=== PATIENT | female | born 1930 | race Caucasian/White ===

== ENCOUNTER 2018-06-26 11:21 | Observation (INO) | payer MEDICARE ==
[2018-06-25 14:00] VITALS: BMI 26.5
[2018-06-26] MEDS ORDERED: CEFAZOLIN 2 GM/50 ML BAG ONE (12:12)
[2018-06-26 12:23] LABS: #Eosinphils 0.1 thou/uL (0.0-0.7); #Lymphocytes 2.4 thou/uL (1.20-3.40); #Monocytes 0.6 thou/uL (0.11-0.59); #Neutrophils 3.8 thou/uL (1.40-6.50); %Basophils 0.2 % (0.0-1.0); %Eosinophils 1.7 % (0.0-10.0); %Lymphocytes 34.6 % (21.0-51.0); %Monocytes 8.4 % (0.0-10.0); %Neutrophils 55.2 % (42.0-75.0); Mean Corpuscular HGB CONC 32.5 g/dL (32.0-36.0); Mean Corpuscular Hemoglobin 29.4 pg (27.0-31.0); Mean Corpuscular Volume 90.4 fL (78.0-98.0); Mean Platelet Volume 7.2 fL (7.4-10.4); Platelet Count 192 thou/uL (130-400); RBC Distribution Width 11.8 % (11.5-14.5); Red Blood Cell (RBC) Count 4.76 mill/uL (4.20-5.40); White Blood Cell (WBC) Count 6.8 thou/uL (4.8-10.8)
[2018-06-26 12:42] LABS: Anion Gap 9 mmol/L (10-20); BUN (Urea Nitrogen) 11 mg/dL (9.8-20.1); Calc. Creatinine Clearance 58 mL/min (70-130); Calcium 9.4 mg/dL (7.8-10.44); Carbon Dioxide 29 mmol/L (23-31); Chloride 109 mmol/L (98-107); Estimated GFR-MDRD 74; Glucose 91 mg/dL (83-110); Potassium 3.8 mmol/L (3.5-5.1); Sodium 143 mmol/L (136-145)
--- NOTE | 2018-06-26 12:50 | RAD ---
CHEST ONE VIEW: History: 87-year-old female for pre-operative evaluation. Comparison: 01-02-15 FINDINGS: Post underlying sternotomy and coronary artery bypass changes. Old granulomatous disease. No confluen t pneumonia, overt edema or pleural effusion. IMPRESSION: Post underlying sternotomy. No acute intrathoracic disease. Atherosclerosis of the aorta. POS: [facility]
[2018-06-26] MEDS ORDERED: Ropivacaine 0.5% HCl/PF (150 MG/30 ML VIAL) ONE (14:18)
[2018-06-26] MEDS ORDERED: Ropivacaine 0.2% HCl/PF (40 MG/20 ML VIAL) ONE (14:18)
[2018-06-26] MEDS ORDERED: Ondansetron PF 4 MG/2 ML Vial ONE (14:24)
[2018-06-26] MEDS ORDERED: Dexamethasone 20 MG/5 ML VIAL ONE (14:24)
[2018-06-26] MEDS ORDERED: Lidocaine 1% PF 5 ML VIAL ONE (14:24)
[2018-06-26] MEDS ORDERED: ePHEDrine/0.9% NaCl/PF SYRINGE 50 mg/10 ml ONE (14:24)
[2018-06-26] MEDS ORDERED: PHENYLEPHRINE-NS 100 MCG/ML 10 ML SYRINGE ONE (14:24)
[2018-06-26] MEDS ORDERED: PROPOFOL 200 MG/20 ML VIAL ONE (14:24)
[2018-06-26] MEDS ORDERED: Midazolam HCl 2 mg/2 ml Vial ONE (14:45)
[2018-06-26] MEDS ORDERED: Fentanyl 100 MCG/2 ML VIAL ONE ×2 (14:45→15:55)
[2018-06-26] MEDS ORDERED: traMADol HCl 50 MG TAB PO PRN ×2 (15:15)
[2018-06-26] MEDS ORDERED: Promethazine HCl 25 MG/ML VIAL IM PRN ×2 (15:15→18:25)
[2018-06-26] MEDS ORDERED: HYDROcodone/Acetaminophen 10/325 mg Tablet PO PRN ×2 (15:15)
[2018-06-26] MEDS ORDERED: Fentanyl 100 MCG/2 ML VIAL IV PRN (15:15)
[2018-06-26] MEDS ORDERED: Ondansetron PF 4 MG/2 ML Vial IVP PRN (15:15)
[2018-06-26] MEDS ORDERED: Ropivacaine 0.2% 550 ML 550 ML NERVE BLCK SCH (15:15)
[2018-06-26] MEDS ORDERED: Zolpidem Tartrate 5 MG TAB PO PRN (15:15)
[2018-06-26] MEDS ORDERED: Sodium Chloride 0.9% 10 ML ONE (15:51)
[2018-06-26] MEDS ORDERED: Bupivacaine PF 0.5% 30 ML VIAL ONE (15:51)
[2018-06-26] MEDS ORDERED: Bacitracin Zinc Ointment 30 gm TUBE ONE (15:51)
[2018-06-26] MEDS ORDERED: Ondansetron HCl/PF 4 MG/2 ML Vial IVP PRN (18:25)
[2018-06-26] MEDS ORDERED: Promethazine HCl 25 MG/ML VIAL SLOW IVP PRN (18:25)
[2018-06-26] MEDS ORDERED: Milk Of Magnesia 30 ML UDCUP PO PRN (18:29)
[2018-06-26] MEDS ORDERED: Ondansetron PF 4 MG/2 ML Vial IV PRN (18:29)
[2018-06-26] MEDS ORDERED: HYDROcodone/Acetaminophen 5/325 mg Tablet PO PRN (18:29)
[2018-06-26] MEDS ORDERED: Acetaminophen/Codeine 30-300mg Tablet PO PRN (18:29)
[2018-06-26] MEDS ORDERED: TETANUS AND DIPHTHERIA TOX/PF 0.5 ML DISP.SYRIN IM SCH (18:30)
--- NOTE | 2018-06-26 19:45 | RAD ---
RIGHT HAND: 06/26/18 Total of four fluoroscopic views in OR are presented during internal fixation procedure. INDICATIONS: Open reduction internal fixation right hand with intraoperative imaging. FINDINGS/IMPRESSION: These films demonstrate internal fixation of trapezium with metallic pin. POS: [facility]
[2018-06-26] MEDS ORDERED: Vancomycin HCl 1 GM in Premix Bag 1 BAG IVPB SCH (20:00)
[2018-06-26] MEDS: Aspirin 81 mg Enteric Coated Tablet PO SCH (20:46)
[2018-06-27] MEDS: Aspirin 81 mg Enteric Coated Tablet PO SCH (08:13)
[2018-06-27 18:01] VITALS: BP 145/71; TEMP 98.7
--- NOTE | 2018-07-01 22:00 | EKG ---
Test Reason : PREOP Blood Pressure : / mmHG Vent. Rate : 061 BPM Atrial Rate : 061 BPM P-R Int : 180 ms QRS Dur : 088 ms QT Int : 440 ms P-R-T Axes : 035 000 048 degrees QTc Int : 442 ms Normal sinus rhythm Inferior infarct , age undetermined T wave abnormality, consider anterior ischemia Abnormal ECG Confirmed by EDWAR SUAREZ (2) on 07/01/2018 9:59:30 PM Referred By: ANETTE Confirmed By:EDWAR SUAREZ
--- NOTE | 2018-07-02 13:13 | OP ---
DATE OF PROCEDURE: 06/26/2018 PREOPERATIVE DIAGNOSIS: Right thumb carpometacarpal osteoarthritis. POSTOPERATIVE DIAGNOSES: Right thumb carpometacarpal osteoarthritis with greater than 80% carpometac arpal joint osteoarthritis, chondral loss, completed osteophyte formation both sides of the joint wit h subluxation over 50%. There was no metacarpophalangeal joint hyperextension. PROCEDURE PERFORMED: 1. Right ____ . 2. Right thumb carpometacarpal joint arthroplasty interpositional. 3. Flexor carpi radialis transfer to the base of the thumb for ligament replacement interposition. 4. C-arm supervision. SPECIMEN REMOVED: None. TOURNIQUET TIME: 54 minutes. ESTIMATED BLOOD LOSS: 10 mL. COMPLICATIONS: None. ____. She has ____ thumb metacarpal to the base of the index metacarpal at appropriate height for he aling. DESCRIPTION OF PROCEDURE: After successful general LMA technique, elevated the limb, prepped and evaristo ped. We then injected the outline incision for the tendon harvest x2 and the CMC LRTI procedure x1 w ith a total of 10 mL 0.5% Marcaine. The patient already had a block given to augment the general. We then exsanguinated the limb, inflated the tourniquet to 250 mmHg pressure and then began with the curvilinear incision carried through skin, subcutaneous tissue, protecting all superficial radial ner ve branches and then we dissected the fascia of the thenar muscle off the metacarpal and the abductor , displacing them so we could visualize the abductor insertion. We then teased the abductor first an d protected all the nerve branches from the capsule, opened the capsule to visualize the joint and re tracted the capsule throughout the entire case using heavy 2-0 undyed Vicryl. Here, we began osteoph yte incisions, and went proximal into the wound to the level where the flexor carpi radialis was seen , found it and freed it up completely to the level of the second metacarpal. We then began a sharp d issection to remove the trapezium after we placed a 62 threaded K-wire inside it to confirm on radiog raphs, it was exactly the trapezium we were removing. Once this was confirmed, we finish the excisio n of the trapezius and the trapeziectomy was completed. Then had with the tourniquet up still, trapeziectomy completed. In the posterior capsule we then jennifer barbie a heavy 3-0 Prolene [id number] as far ulnar as in line with the interspace treated for a sec ond metacarpal bases. At this point, we then dissected slightly laterally, identified osteophytes on the base of the thumb metacarpal and removed them. We also identified the extensor, protected it, v isualized the radial nerve branch protected it and then rotated the thumb parallel to the table, held by the lpn medical assistant, and then in the plane of the thumb nail drilled a 2.5 drill, 1.5 cm distal to the base of the thumb metacarpal and then had exited just at the chondral metaphysis junction. It was ex cellent in the frontal sagittal plane and had solid wall all around it, so we then overdrilled it wit h a 3.5 Synthes drill bit, to use curettes to slightly enlarge the tunnel wall and inside diameter, i rrigated it and found it was large enough for any tendon. We then turned attention to the flexor carpi radialis tendon where we made two incisions, each 1 appr oximately 8 cm from each other and the first one 8 centimeter from the volar wrist flexion crease, id entified flexor carpi radialis tendon then harvested it completely. We took all muscle from it befor e we pulled it into the wrist. Here, we dissected it free of any frayed area, passed it through the drill hole from the ulnar side to the radial side. Once it was here under gentle tension, we then ob tained position on C-arm that we wanted the base of the thumb metacarpal to be which will be 1 mm ove r reduced and it had an excellent abduction and clinical appearance and then drilled this with a K-wi re to hold the first metacarpal head at length for 3-4 weeks relative to the 2nd. At this point, we began a series of 4-0 Prolene 2 times suturing it to the tendon and the remnants of the metacarpal ba se of the thumb, passed it deep to the abductor and twice sutured here with the same 4.0 [id number] ght pattern, placed 2 sutures in the fascia of the base of the thumb metacarpal and then sutured it w ith the same 4-0 Prolene to itself under appropriate tension. Then, we cut the needles from the 3-0 Prolene and deep in the posterior capsule, placed a Luis needle, 1 on each end, and did an anchovy t ype weave and then tied this deep in the capsule to help fill the gap created by trapeziectomy. This was secured, we then deflated the tourniquet, obtained hemostasis, closed the capsule with 2-0 Vicry l, repaired the fascia of the thenar muscle with 3-0 Monocryl, used 4-0 Monocryl subcutaneous closure with hemostasis excellent and then 4-0 nylon for the skin. This was true for both the primary incis ion as well as the harvest site incisions. We then cut the wire, we bent it at the junction, leaving a 2 mm limb protruding with a 2 mm curve an d then cut it. We placed a bulky dressing, and bacitracin, Adaptic, 4 x 4s, Kerlix, and then placed the patient in a thumb spica sugar tong splint and she left the operating room without evidence of an esthetic or operative complication.
== END 2018-06-27 18:15 | disposition home or self-care (01) ==
LOC: SDC 11:21 → SJJU 19:20
PROVIDERS: ADMIT Orthopaedic Surgery Hand Surgery; ATTEND Orthopaedic Surgery Hand Surgery
PROC: 0RQS0ZZ Repair Right Carpometacarpal Joint, Open Approach (ICD-10-PCS; principal; 2018-06-26)
PROC: 0LX50ZZ Transfer Right Lower Arm and Wrist Tendon, Open Approach (ICD-10-PCS; 2018-06-26)
DX: M18.11 Unilateral primary osteoarthritis of first carpometacarpal joint, right hand (principal); M65.322 Trigger finger, left index finger; G56.21 Lesion of ulnar nerve, right upper limb; M25.839 Other specified joint disorders, unspecified wrist; F99 Mental disorder, not otherwise specified; Z86.73 Personal history of transient ischemic attack (TIA), and cerebral infarction without residual deficits; Z79.82 Long term (current) use of aspirin; Z79.899 Other long term (current) drug therapy; Z91.048 Other nonmedicinal substance allergy status; Z95.0 Presence of cardiac pacemaker
CPT/HCPCS: 25310; 25447; 71045; 73120; 76001; 80048; 85025; 93005; 96365; 96366; A4306; G0378; 36415; 93010; J1100; J2001; J2250; J2405; J2704; J2795; J3010; J3370; J3490; S0020

== ENCOUNTER 2018-10-11 09:45 | Outpatient (CLI) | payer MEDICARE ==
--- NOTE | 2018-10-11 10:49 | BD ---
DEXA BONE DENSITY STUDY: Date: 10/11/18 HISTORY: 87-year-old postmenopausal female for screening. FINDINGS: Lumbar Spine: BMD (g/cm2) L1 1.131 T-Score: 1.3 L2 1.146 T-Score: 1.1 L3 1.196 T-Score: 1.0 L4 1.065 T-Score: 0.0 L1-L4 1.132 T-Score: 0.8 Left Femoral Neck: 0.571 T-Score: -2.5 Total Femur: 0.765 T-Score: -1.4 IMPRESSION: Osteoporosis. This patient has between a 6-7 times increased risk of fracture when compared with gary g patients with normal bone mineral density. POS: [facility]
== END 2018-10-11 09:46 | disposition home or self-care (01) ==
LOC: BICMAMMO 09:45
PROVIDERS: ATTEND Family Medicine
DX: Z13.820 Encounter for screening for osteoporosis (principal); M81.0 Age-related osteoporosis without current pathological fracture; Z78.0 Asymptomatic menopausal state
CPT/HCPCS: 77080

== ENCOUNTER 2019-04-24 06:49 | Outpatient (CLI) | payer MEDICARE ==
[2019-04-24 12:44] LABS: #Eosinphils 0.1 thou/uL (0.0-0.7); #Lymphocytes 2.7 thou/uL (1.20-3.40); #Monocytes 0.8 thou/uL (0.11-0.59); #Neutrophils 3.6 thou/uL (1.40-6.50); %Basophils 0.3 % (0.0-1.0); %Eosinophils 1.6 % (0.0-10.0); %Lymphocytes 37.5 % (21.0-51.0); %Neutrophils 49.7 % (42.0-75.0); Hemoglobin 14.8 g/dL (12.0-16.0); Mean Corpuscular HGB CONC 33.9 g/dL (32.0-36.0); Mean Corpuscular Hemoglobin 30.5 pg (27.0-31.0); Mean Corpuscular Volume 90.1 fL (78.0-98.0); Mean Platelet Volume 7.8 fL (7.4-10.4); Platelet Count 177 thou/uL (130-400); Red Blood Cell (RBC) Count 4.85 mill/uL (4.20-5.40); White Blood Cell (WBC) Count 7.2 thou/uL (4.8-10.8)
[2019-04-24 13:05] LABS: Anion Gap 10 mmol/L (10-20); BUN (Urea Nitrogen) 10 mg/dL (9.8-20.1); Calc. Creatinine Clearance 0 mL/min (70-130); Calcium 9.5 mg/dL (7.8-10.44); Carbon Dioxide 27 mmol/L (23-31); Chloride 106 mmol/L (98-107); Estimated GFR-MDRD 74; Glucose 92 mg/dL (83-110); Potassium 3.8 mmol/L (3.5-5.1); Sodium 139 mmol/L (136-145)
--- NOTE | 2019-04-24 17:00 | EKG ---
Test Reason : Blood Pressure : / mmHG Vent. Rate : 061 BPM Atrial Rate : 061 BPM P-R Int : 172 ms QRS Dur : 076 ms QT Int : 420 ms P-R-T Axes : 022 035 051 degrees QTc Int : 422 ms Normal sinus rhythm Low voltage QRS Borderline ECG When compared with ECG of 26-JUN-2018 12:28, Criteria for Inferior infarct are no longer Present T wave inversion no longer evident in Anterior leads Confirmed by DR. Antonieta FRANCO ([id number]) on 04/24/2019 4:59:57 PM Referred By: ANETTE Confirmed By:DR. Antonieta FRANCO
== END 2019-04-24 06:50 | disposition home or self-care (01) ==
LOC: LABBT 06:49
PROVIDERS: ATTEND Orthopaedic Surgery Hand Surgery
DX: Z01.818 Encounter for other preprocedural examination (principal)
CPT/HCPCS: 80048; 85025; 93005; 93010

== ENCOUNTER 2019-04-26 06:44 | Day surgery (SDC) | payer MEDICARE ==
[2019-04-24 10:32] VITALS: BMI 25.0
[2019-04-26] MEDS ORDERED: Fentanyl 100 MCG/2 ML VIAL ONE (08:57)
[2019-04-26] MEDS ORDERED: Sodium Chloride 0.9% 10 ML ONE (08:59)
[2019-04-26] MEDS ORDERED: Bupivacaine PF 0.5% 30 ML VIAL ONE (08:59)
[2019-04-26] MEDS ORDERED: Betamet Acet/Betamet Na Ph 30 MG/5 ML VIAL ONE (08:59)
[2019-04-26] MEDS ORDERED: Ketorolac Tromethamine 30 MG/ML VIAL ONE (10:55)
--- NOTE | 2019-04-28 12:31 | OP ---
DATE OF PROCEDURE: 04/26/2019 PREOPERATIVE DIAGNOSES: 1. Left ring finger trigger digit. 2. Left middle finger trigger digit. 3. Left index finger trigger digit. FINDINGS: Very tight A1 alea along with some tight synechiae and fascia, just proximal to the A1 alea. PROCEDURES PERFORMED: 1. Left middle finger A1 alea release. 2. Left ring finger A1 alea release. 3. Left index finger A1 alea release. TOURNIQUET TIME: 22 minutes. ANESTHESIA: General, LMA technique by [place]mani Anesthesia, augmented by 20 mL of 0.5% Marcaine block, 10 given before incision and 10 after wound closed. INDICATIONS FOR PROCEDURE: Failed conservative treatment of all these problems. ESTIMATED BLOOD LOSS: 10 mL. DESCRIPTION OF PROCEDURE: After successful general endotracheal anesthesia, time-out was done appropriately. We identified the central 3 digits as index, long, and ring and did not touch the small and thumb. The patient then had a radial base incision, Shonna type just radial to the midline of the A1 alea and flexor tendon to the index finger and then an incision zigzag between the ring and long finger maximizing the space between the 2 incisions. We first after exsanguinating the limb, inflated tourniquet to 250 mmHg pressure, entered with a sharp knife and [place] blade the index finger incision. We found the radial and ulnar digital nerve, dissected down to the A1 alea and released it in the midline under direct visualization with [place] blade. We then released a band of fascia/synechiae just proximal to this. There was no further triggering or catching. There was no deep mass to the tendon in the bed of the A1 alea/volar plate. We then performed a similar incision, carried through skin and subcutaneous tissue, completely did a neuroplasty, identified the digital nerve radial to the middle finger, ulnar to the ring finger, and then approaching the ring finger first, we slightly retracted the nerve radially, identified the A1 alea and the contralateral side, the digit neurovascular bundles protected. We released the A1 alea in the midline along with the same type of band found in the index finger. We then gently retracted the neurovascular bundles ulnarly, identified the A1 alea of the long finger and released in the same fashion and with the same proximal extension as done in the other 2 digits. We placed 3 mL of Celestone over the incision for the 2 releases and 1 in 2 mL in the incision over the index finger. We released the tourniquet and obtained hemostasis. We closed the wound with interrupted 4-0 nylon in simple pattern and gave the remaining 10 mL of 0.5% Marcaine and a bulky dressing was applied without complication. The patient left the operating room without evidence of anesthetic or operative complication. Job ID: [id number]
== END 2019-04-26 13:30 | disposition home or self-care (01) ==
LOC: SDC 06:44
PROVIDERS: ATTEND Orthopaedic Surgery Hand Surgery
PROC: 0LN80ZZ Release Left Hand Tendon, Open Approach (ICD-10-PCS; principal; 2019-04-26)
PROC: 0LN80ZZ Release Left Hand Tendon, Open Approach (ICD-10-PCS; 2019-04-26)
PROC: 0LN80ZZ Release Left Hand Tendon, Open Approach (ICD-10-PCS; 2019-04-26)
DX: M65.322 Trigger finger, left index finger (principal); M65.332 Trigger finger, left middle finger; M65.342 Trigger finger, left ring finger; M19.90 Unspecified osteoarthritis, unspecified site; Z86.73 Personal history of transient ischemic attack (TIA), and cerebral infarction without residual deficits; Z91.048 Other nonmedicinal substance allergy status
CPT/HCPCS: J0690; J0702; J1885; J3010; J3490; S0020

== ENCOUNTER 2020-05-21 07:24 | Outpatient (CLI) | payer MEDICARE, OTHER ==
--- NOTE | 2020-05-21 10:30 | MRI ---
MRI BRAIN WITH AND WITHOUT CONTRAST: DATE: 05/21/2020 HISTORY: 89-year-old female with left-sided weakness, disequilibrium, and memory loss TECHNIQUE: Multiplanar, multisequence MRI of the brain obtained pre and post IV injection of gadolinium based co ntrast agent. FINDINGS: There is no obstructive hydrocephalus. There is no midline shift or any other evidence of mass effect . There is no extra-axial fluid collection. 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 There is no abnormal enhancement, mass, recent hemorrhage, or restricted diffusion. IMPRESSION: 1) mild-moderate chronic ischemic white matter changes. 2) otherwise negative
== END 2020-05-21 07:25 | disposition home or self-care (01) ==
LOC: SCSMRI 07:24
PROVIDERS: ATTEND Physician Assistant
DX: R53.1 Weakness (principal); R26.89 Other abnormalities of gait and mobility; I48.0 Paroxysmal atrial fibrillation; I67.82 Cerebral ischemia
CPT/HCPCS: 70553; 82565

== ENCOUNTER 2020-10-12 07:34 | Outpatient (CLI) | payer MEDICARE | END 2020-10-12 07:35 | disposition home or self-care (01) | LOC: TBSIIMAG 07:34 | PROVIDERS: ATTEND Orthopaedic Surgery Hand Surgery | DX: D36.10 Benign neoplasm of peripheral nerves and autonomic nervous system, unspecified (principal); R60.0 Localized edema; Z98.890 Other specified postprocedural states ==